=== PATIENT | female | born 1980 | race Caucasian/White ===

== ENCOUNTER 2016-05-30 08:00 | Outpatient (CLI) | payer OTHER | END 2016-05-30 08:01 | disposition home or self-care (01) | DX: N18.1 Chronic kidney disease, stage 1 (principal); E61.1 Iron deficiency ==

== ENCOUNTER 2016-06-20 19:36 | Outpatient (CLI) | payer OTHER | END 2016-06-20 19:37 | disposition home or self-care (01) | DX: Z11.3 Encounter for screening for infections with a predominantly sexual mode of transmission (principal) ==

== ENCOUNTER 2016-06-30 06:00 | Outpatient (CLI) | payer OTHER | END 2016-06-30 06:01 | disposition home or self-care (01) | DX: Z11.4 Encounter for screening for human immunodeficiency virus [HIV] (principal) ==

== ENCOUNTER 2016-08-03 08:50 | Emergency (ER) | payer OTHER | END 2016-08-03 10:49 | disposition home or self-care (01) | DX: S63.502A Unspecified sprain of left wrist, initial encounter (principal); W10.8XXA Fall (on) (from) other stairs and steps, initial encounter; Y93.89 Activity, other specified; Z95.2 Presence of prosthetic heart valve; Z79.82 Long term (current) use of aspirin ==

== ENCOUNTER 2017-04-13 11:20 | Outpatient (CLI) | payer OTHER ==
[2017-04-13 19:02] LABS: BASOPHILS # (AUTO) 0.1 10^3/uL (0.0-0.1); BASOPHILS % (AUTO) 0.7 %; EOSINOPHILS # (AUTO) 0.3 10^3/uL (0.0-0.7); EOSINOPHILS % (AUTO) 2.9 %; HCT - HEMATOCRIT 43.6 % (37.0-47.0); HGB - HEMOGLOBIN 14.4 g/dL (12.0-16.0); LYMPHOCYTES % (AUTO) 21.8 %; MEAN CORPUSCULAR HEMOGLOBIN 31.9 pg (27.0-31.0); MEAN CORPUSCULAR HGB CONC 33.1 g/dL (32.0-36.0); MEAN CORPUSCULAR VOLUME 96.4 fL (81.0-99.0); MEAN PLATELET VOLUME 9.1 fL (7.9-10.8); MONOCYTES # (AUTO) 0.7 10^3/uL (0.0-1.0); MONOCYTES % (AUTO) 7.3 %; NEUTROPHILS # (AUTO) 6.1 10^3/uL (1.5-6.6); NEUTROPHILS % (AUTO) 67.3 %; NUCLEATED RED BLOOD CELLS AUTO 0.1 /100WBC; RED BLOOD COUNT 4.52 10^6/uL (4.20-5.40); RED CELL DISTRIBUTION WIDTH 12.6 % (12.0-15.0); UNCORRECTED WHITE BLOOD COUNT 9.1 x10^3/uL; WHITE BLOOD COUNT 9.1 x10^3/uL (4.8-10.8)
[2017-04-13 19:18] LABS: ALBUMIN/GLOBULIN RATIO 1.1 (1.0-2.2); BILIRUBIN,TOTAL 0.5 mg/dL (0.2-1.0); BUN - BLOOD UREA NITROGEN 21 mg/dL (6-20); CALCIUM 9.1 mg/dL (8.5-10.3); CARBON DIOXIDE - CO2 21 mmol/L (21-32); CHLORIDE 105 mmol/L (101-111); CHOL/HDL RATIO 3.2 (<4.4); CHOLESTEROL 205 mg/dL; CREATININE 1.5 mg/dL (0.4-1.0); GFR - MDRD 39 (>89); GLUCOSE 88 mg/dL (70-100); HDL CHOLESTEROL 65 mg/dL; IRON 142 ug/dL (28-170); LDL/HDL RATIO 1.4 (<4.4); POTASSIUM 4.3 mmol/L (3.5-5.0); SODIUM 134 mmol/L (135-145); TOTAL IRON BINDING CAPACITY 300 ug/dL (250-450); TRANSFERRIN 214 mg/dL (192-382); TRIGLYCERIDES 260 mg/dL; VLDL CHOLESTEROL 52 mg/dL
== END 2017-04-13 11:21 | disposition home or self-care (01) ==
LOC: LAB.WCP 11:20
PROVIDERS: ATTEND Physician Assistant Medical
DX: Z51.81 Encounter for therapeutic drug level monitoring (principal); N18.1 Chronic kidney disease, stage 1; E78.5 Hyperlipidemia, unspecified; E61.1 Iron deficiency
CPT/HCPCS: 36415; 80053; 80061; 82728; 83540; 84466; 85025

== ENCOUNTER 2017-07-13 08:00 | Outpatient (CLI) | payer OTHER ==
[2017-07-13 14:10] LABS: ALBUMIN 3.6 g/dL (3.2-5.5); ALBUMIN/GLOBULIN RATIO 1.1 (1.0-2.2); ALKALINE PHOSPHATASE 58 IU/L (42-121); ALT ALANINE AMINOTRANSFERASE 25 IU/L (10-60); AST ASPARTATE AMINOTRANSFERASE 27 IU/L (10-42); BILIRUBIN,TOTAL 0.9 mg/dL (0.2-1.0); BUN - BLOOD UREA NITROGEN 17 mg/dL (6-20); CARBON DIOXIDE - CO2 26 mmol/L (21-32); CHLORIDE 106 mmol/L (101-111); CHOL/HDL RATIO 2.8 (<4.4); CHOLESTEROL 213 mg/dL; CREATININE 1.5 mg/dL (0.4-1.0); GFR - MDRD 39 (>89); GLUCOSE 85 mg/dL (70-100); HDL CHOLESTEROL 77 mg/dL; LDL CHOLESTEROL,CALCULATED 103 mg/dL; LDL/HDL RATIO 1.3 (<4.4); SODIUM 135 mmol/L (135-145); VLDL CHOLESTEROL 33 mg/dL
== END 2017-07-13 08:01 | disposition home or self-care (01) ==
LOC: LAB.WCP 08:00
PROVIDERS: ATTEND Physician Assistant Medical
DX: E78.5 Hyperlipidemia, unspecified (principal); Z51.81 Encounter for therapeutic drug level monitoring; Z79.899 Other long term (current) drug therapy
CPT/HCPCS: 36415; 80053; 80061; 83721

== ENCOUNTER 2017-10-01 14:43 | Outpatient (CLI) | payer OTHER ==
[2017-10-01 15:21] LABS: ALBUMIN 3.5 g/dL (3.2-5.5); ALBUMIN/GLOBULIN RATIO 0.9 (1.0-2.2); BILIRUBIN,TOTAL 0.5 mg/dL (0.2-1.0); CALCIUM 8.9 mg/dL (8.5-10.3); CREATININE 1.6 mg/dL (0.4-1.0); CRP HIGH SENSITIVITY 10.2 mg/L; TOTAL PROTEIN 7.2 g/dL (6.7-8.2)
== END 2017-10-01 14:44 | disposition home or self-care (01) ==
LOC: LAB 14:43
PROVIDERS: ATTEND Internal Medicine Adult Congenital Heart Disease
DX: I35.1 Nonrheumatic aortic (valve) insufficiency (principal)
CPT/HCPCS: 36415; 80053; 83880; 85651; 86141

== ENCOUNTER 2017-10-05 18:03 | Outpatient (CLI) | payer OTHER ==
[2017-10-05 18:27] LABS: ALBUMIN 3.7 g/dL (3.2-5.5); ALBUMIN/GLOBULIN RATIO 1.1 (1.0-2.2); BILIRUBIN,TOTAL 0.6 mg/dL (0.2-1.0); CREATININE 1.7 mg/dL (0.4-1.0); TOTAL PROTEIN 7.1 g/dL (6.7-8.2)
== END 2017-10-05 18:04 | disposition home or self-care (01) ==
LOC: LAB 18:03
PROVIDERS: ATTEND Internal Medicine Adult Congenital Heart Disease
DX: I35.1 Nonrheumatic aortic (valve) insufficiency (principal)
CPT/HCPCS: 80053

== ENCOUNTER 2017-10-19 17:15 | Outpatient (CLI) | payer OTHER ==
[2017-10-19 17:52] LABS: INR 1.4 (0.8-1.2); PT - PROTHROMBIN TIME 16.1 secs (9.9-12.6)
== END 2017-10-19 17:16 | disposition home or self-care (01) ==
LOC: LAB 17:15
PROVIDERS: ATTEND Family Medicine
DX: Z79.01 Long term (current) use of anticoagulants (principal)
CPT/HCPCS: 85610

== ENCOUNTER 2017-12-26 08:00 | Outpatient (CLI) | payer OTHER ==
[2017-12-26 13:13] LABS: CHOL/HDL RATIO 2.6 (<4.4); CHOLESTEROL 181 mg/dL; HDL CHOLESTEROL 70 mg/dL; LDL CHOLESTEROL,CALCULATED 85 mg/dL; LDL/HDL RATIO 1.2 (<4.4); VLDL CHOLESTEROL 26 mg/dL
== END 2017-12-26 08:01 ==
LOC: LAB.WCP 08:00
PROVIDERS: ATTEND Family Medicine
DX: E78.5 Hyperlipidemia, unspecified (principal)
CPT/HCPCS: 36415; 80061; 83721

== ENCOUNTER 2018-07-27 09:15 | Emergency (ER) | payer OTHER ==
[2018-07-27 09:26] VITALS: BP 132/90
--- NOTE | 2018-07-27 09:39 | ED Physician Documentation ---
PD HPI FEMALE - Stated complaint Stated Complaint: FEM - Chief complaint Chief Complaint: UTI - History obtained from History obtained from: Patient - History of Present Illness Timing - onset: How many weeks ago (1) Timing - duration: Weeks (1) Timing - details: Gradual onset, Still present (tried OTC Monistat without improvement.) Associated symptoms: Vaginal discharge (Itching and white discharge c/w yeast infection.) Contributing factors: Other (No recent illness no antibiotics. She is with single partner. She denies any new medications.) Similar symptoms before: Diagnosis (yeast infection years agao) Review of Systems Constitutional: denies: Fever Nose: denies: Rhinorrhea / runny nose, Congestion Throat: denies: Sore throat GI: denies: Vomiting, Diarrhea : reports: Discharge. 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 Psych: Depression - Past Surgical History Past Surgical History: Yes Cardiovascular: Valve replacement - Present Medications Home Medications: Ambulatory Orders Medication Instructions Recorded Confirmed Escitalopram Oxalate [Lexapro] 1 tab PO DAILY 10/13/15 08/03/16 Aspirin [Gurwinder Chewable] 81 mg PO DAILY 11/14/15 08/03/16 Albuterol Sulfate [Proair Hfa 1 puffs INH .FREQ 05/08/16 08/03/16 Inhaler] Bacillus Coagulans [Probiotic] 1 tab PO DAILY 05/08/16 08/03/16 Cetirizine HCl/Pseudoephedrine 1 each PO BID PRN #30 tab.er.12h 05/08/16 08/03/16 [Zyrtec-D Tablet] Ferrous Gluconate [Iron] 1 tab PO DAILY 05/08/16 08/03/16 Multivitamin [Multivitamins] 1 tab PO DAILY 05/08/16 08/03/16 Control 1 tab PO DAILY 08/03/16 Fluconazole [Diflucan] 150 mg PO ONCE #2 tablet 07/27/18 - Allergies Allergies/Adverse Reactions: Allergies Allergy/AdvReac Type Severity Reaction Status Date / Time Sulfa (Sulfonamide Allergy Hives Verified 07/27/18 09:26 Antibiotics) - Social History Does the pt smoke?: No Smoking Status: Never smoker Does the pt drink ETOH?: No Does the pt have substance abuse?: No - Immunizations Immunizations are current?: Yes - POLST Patient has POLST: No PD ED PE NORMAL - Vitals Vital signs reviewed: Yes - General General: Alert and oriented X 3, No acute distress, Well developed/nourished - HEENT HEENT: Moist mucous membranes - Back Back: No CVA TTP - Derm Derm: Normal color, Warm and dry - Neuro Neuro: Alert and oriented X 3, No motor deficit, Normal speech Results - Vitals Vitals: Vital Signs - 24 hr 07/27/18 09:23 Temperature 36.4 C L Heart Rate 85 Respiratory 14 Rate Blood Pressure 132/90 H O2 Saturation 95 Oxygen O2 Source Room air PD MEDICAL DECISION MAKING - ED course Complexity details: considered differential (Sounds like a yeast vaginitis and we will treated that way. We discussed potential bacterial vaginitis and shared decision to defer pelvic exam at this time.), d/w patient Departure - Departure Disposition: 01 Home, Self Care Clinical Impression: Vaginitis Qualifiers: Chronicity: acute Qualified Code(s): N76.0 - Acute vaginitis Condition: Stable Record reviewed to determine appropriate education?: Yes Instructions: ED Vaginal Infec Fungal Caty Follow-Up: Wilfredo Johnson DO [Primary Care Provider] - Prescriptions: Fluconazole [Diflucan] 150 mg PO ONCE #2 tablet Comments: Take the fluconazole today and repeat it in 3-4 days. This typically will be sufficient. Recheck if not improved over the next few days for consideration of bacterial cause instead.
== END 2018-07-27 09:51 | disposition home or self-care (01) ==
LOC: ED 09:15
DX: N76.0 Acute vaginitis (principal); I10 Essential (primary) hypertension; Z95.2 Presence of prosthetic heart valve; Z79.82 Long term (current) use of aspirin
CPT/HCPCS: 99283

== ENCOUNTER 2018-10-02 08:59 | Emergency (ER) | payer OTHER ==
[2018-10-02] MEDS ORDERED: DEXAMETHASONE 10 MG/ML VIAL PO STA (09:39)
[2018-10-02] MEDS ORDERED: CHERRY SYRUP 10 ML UDC PO ONE (09:39)
--- NOTE | 2018-10-02 09:42 | ED Physician Documentation ---
PD HPI URI - Stated complaint Stated Complaint: COUGH/SORE THROAT/CONGESTION - Chief complaint Chief Complaint: Resp - History obtained from History obtained from: Patient - History of Present Illness Timing - onset: How many weeks ago (1) Timing duration: Weeks (1) Timing details: Gradual onset, Still present Associated symptoms: Nasal congestion, Rhinorrhea, Sinus pain, Productive cough, Dyspnea Improves by: Rest, Medication Worsened by: Activity Similar symptoms before: Diagnosis (bronchitis and sinusitis) Recently seen: Not recently seen - Additional information Additional information: 38-year-old female who is status post aortic arch and valve replacement has developed a cough and congestion productive of yellow and green phlegm and some shortness of breath. She does have an inhaler and she has been reluctant to use it as previously when she was using her inhaler over over again last year it eventually became clear that it was not reactive airway disease and at that point the patient had to have her aortic valve replaced. She is on her second porcine valve. 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 Psych: Depression - Past Surgical History Past Surgical History: Yes Cardiovascular: Valve replacement - Present Medications Home Medications: Ambulatory Orders Medication Instructions Recorded Confirmed Escitalopram Oxalate [Lexapro] 1 tab PO DAILY 10/13/15 10/02/18 Aspirin [Gurwinder Chewable] 81 mg PO DAILY 11/14/15 10/02/18 Albuterol Sulfate [Proair Hfa 1 puffs INH .FREQ 05/08/16 10/02/18 Inhaler] Ferrous Gluconate [Iron] 1 tab PO DAILY 05/08/16 10/02/18 Multivitamin [Multivitamins] 1 tab PO DAILY 05/08/16 10/02/18 Control 1 tab PO DAILY 08/03/16 10/02/18 Amox/Clav 875/125 [Augmentin] 1 each PO Q12H #20 tablet 10/02/18 Loratadine/Pseudoephedrine 1 each PO DAILY 10/02/18 10/02/18 [Claritin-D 24 Hour Tablet] Losartan Potassium 50 mg PO DAILY 10/02/18 10/02/18 - Allergies Allergies/Adverse Reactions: Allergies Allergy/AdvReac Type Severity Reaction Status Date / Time Sulfa (Sulfonamide Allergy Hives Verified 10/02/18 09:12 Antibiotics) - Social History Does the pt smoke?: No Smoking Status: Never smoker Does the pt drink ETOH?: No Does the pt have substance abuse?: No - Immunizations Immunizations are current?: Yes - POLST Patient has POLST: No PD ED PE NORMAL - Vitals Vital signs reviewed: Yes (hypertensive ) - General General: Alert and oriented X 3, No acute distress, Well developed/nourished - HEENT HEENT: Atraumatic, PERRL, EOMI, Ears normal, Moist mucous membranes, Pharynx benign, Other (There is left maxillary sinus point tendeness ) - Neck Neck: Supple, no meningeal sign, No bony TTP - Cardiac Cardiac: RRR, Other (2/6 holosystolic murmer at LSB) - Respiratory Respiratory: No respiratory distress, Other (diminshed breath sounds with scattered wheezes and rhonchi ) - Abdomen Abdomen: Soft, Non tender - Back Back: No CVA TTP, No spinal TTP - Derm Derm: Normal color, Warm and dry, No rash - Extremities Extremities: No deformity, No edema - Neuro Neuro: Alert and oriented X 3, band shover 2-12 intact, No motor deficit, No sensory deficit, Normal speech Eye Opening: Spontaneous Motor: Obeys Commands Verbal: Oriented GCS Score: 15 - Psych Psych: Normal mood, Normal affect Results - Vitals Vitals: Vital Signs - 24 hr 10/02/18 09:09 Temperature 36.1 C L Heart Rate 81 Respiratory 16 Rate Blood Pressure 138/90 H O2 Saturation 98 Oxygen O2 Source Room air - Rads (name of study) chest 2 view Radiology: Prelim report reviewed (Impression: 1. No acute disease evident. 2 new aortic valve prosthesis and cardiac pacer in position.), EMP read indepedently, See rad report PD MEDICAL DECISION MAKING - ED course Complexity details: reviewed results, re-evaluated patient, considered differential, d/w patient ED course: 38-year-old female with cough and congestion with sinus tenderness Is administered Rocephin 1 g IM as well as dexamethasone and will place her on a course of Augmentin. Departure - Departure Disposition: 01 Home, Self Care Clinical Impression: Sinusitis Qualifiers: Sinusitis location: maxillary Chronicity: acute Recurrence: not specified as recurrent Qualified Code(s): J01.00 - Acute maxillary sinusitis, unspecified Condition: Stable Instructions: ED Sinusitis Abx Tx Follow-Up: Wilfredo Johnson DO [Primary Care Provider] - Prescriptions: Amox/Clav 875/125 [Augmentin] 1 each PO Q12H #20 tablet Forms: Activity restrictions
--- NOTE | 2018-10-02 10:47 | XRAY Report ---
Reason: cough rhonchi and decreased breath sounds. Procedure Date: 10/02/2018 Accession Number: [id number] / [id number] Procedure: XR - Chest 2 View X-Ray CPT Code: 49778 FULL RESULT: EXAM: CHEST RADIOGRAPHY EXAM DATE: 10/02/2018 10:35 AM. CLINICAL HISTORY: Cough, rhonchi, decreased breath sounds. COMPARISON: XR CHEST PA AND LAT 05/12/2008 4:50 AM. TECHNIQUE: 2 views. FINDINGS: Lungs/Pleura: No focal opacities evident. No pleural effusion. No pneumothorax. Normal volumes. Mediastinum: Heart and mediastinal contours are unremarkable. Other: A new pacer overlies the left chest with leads overlying the right atrium and ventricle. Sternotomy wires are intact. A new valvular prosthesis overlies the expected location of the aortic valve. IMPRESSION: 1. No acute disease evident. 2. New aortic valve prosthesis and cardiac pacer in position. RADIA
[2018-10-02] MEDS ORDERED: IPRATROPIUM/ALBUTEROL 3 ML NEB INH STA (11:05)
[2018-10-02 11:55] VITALS: BP 137/89
== END 2018-10-02 11:35 | disposition home or self-care (01) ==
LOC: ED 08:59
DX: J01.00 Acute maxillary sinusitis, unspecified (principal); J45.909 Unspecified asthma, uncomplicated; I10 Essential (primary) hypertension; Z95.4 Presence of other heart-valve replacement; Z95.0 Presence of cardiac pacemaker; Z79.82 Long term (current) use of aspirin
CPT/HCPCS: 71046; 94640; 94664; 99283; A9270

== ENCOUNTER 2018-10-15 08:30 | Outpatient (CLI) | payer OTHER ==
[2018-10-15 09:49] LABS: BASOPHILS % (AUTO) 0.4 %; EOSINOPHILS # (AUTO) 0.1 10^3/uL (0.0-0.7); EOSINOPHILS % (AUTO) 0.9 %; HGB - HEMOGLOBIN 13.2 g/dL (12.0-16.0); LYMPHOCYTES # (AUTO) 2.2 10^3/uL (1.5-3.5); LYMPHOCYTES % (AUTO) 31.2 %; MEAN CORPUSCULAR HEMOGLOBIN 32.4 pg (27.0-31.0); MEAN CORPUSCULAR HGB CONC 33.8 g/dL (32.0-36.0); MEAN CORPUSCULAR VOLUME 95.9 fL (81.0-99.0); MEAN PLATELET VOLUME 6.9 fL (7.9-10.8); MONOCYTES # (AUTO) 0.5 10^3/uL (0.0-1.0); MONOCYTES % (AUTO) 7.5 %; NEUTROPHILS # (AUTO) 4.3 10^3/uL (1.5-6.6); PLT - PLATELET COUNT 264 10^3/uL (130-450); RED BLOOD COUNT 4.06 10^6/uL (4.20-5.40); RED CELL DISTRIBUTION WIDTH 12.6 % (12.0-15.0); WHITE BLOOD COUNT 7.2 x10^3/uL (4.8-10.8)
[2018-10-15 10:01] LABS: ALBUMIN 3.5 g/dL (3.2-5.5); CALCIUM 9.6 mg/dL (8.5-10.3); CREATININE 1.8 mg/dL (0.4-1.0)
[2018-10-15 10:22] LABS: CREATININE,URINE 119.8 mg/dL; PROTEIN/CREATININE RATIO,URINE 1.2 (<=0.2)
== END 2018-10-15 08:31 | disposition home or self-care (01) ==
LOC: LAB 08:30
PROVIDERS: ATTEND Internal Medicine Nephrology
DX: N18.3 Chronic kidney disease, stage 3 (moderate) (principal); I15.9 Secondary hypertension, unspecified
CPT/HCPCS: 36415; 80069; 82570; 84156; 85025

== ENCOUNTER 2019-01-22 09:16 | Emergency (ER) | payer OTHER ==
[2019-01-22 09:23] VITALS: BP 134/86
--- NOTE | 2019-01-22 09:31 | ED Physician Documentation ---
PD HPI LOWER EXT INJURY - Stated complaint Stated Complaint: ANKLE PX - Chief complaint Chief Complaint: Ext Problem - History obtained from History obtained from: Patient - History of Present Illness PD HPI LOW EXT INJURY LOCATION: Right Type of injury: Twist (last night while walking in heeled shoes.) Timing - onset: Yesterday Timing - details: Abrupt onset, Still present Worsened by: Moving Associated symptoms: Swelling. 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 Psych: Depression - Past Surgical History Past Surgical History: Yes Cardiovascular: Valve replacement - Present Medications Home Medications: Ambulatory Orders Medication Instructions Recorded Confirmed Escitalopram Oxalate [Lexapro] 1 tab PO DAILY 10/13/15 10/02/18 Aspirin [Gurwinder Chewable] 81 mg PO DAILY 11/14/15 10/02/18 Albuterol Sulfate [Proair Hfa 1 puffs INH .FREQ 05/08/16 10/02/18 Inhaler] Ferrous Gluconate [Iron] 1 tab PO DAILY 05/08/16 10/02/18 Multivitamin [Multivitamins] 1 tab PO DAILY 05/08/16 10/02/18 Control 1 tab PO DAILY 08/03/16 10/02/18 Amox/Clav 875/125 [Augmentin] 1 each PO Q12H #20 tablet 10/02/18 Loratadine/Pseudoephedrine 1 each PO DAILY 10/02/18 10/02/18 [Claritin-D 24 Hour Tablet] Losartan Potassium 50 mg PO DAILY 10/02/18 10/02/18 - Allergies Allergies/Adverse Reactions: Allergies Allergy/AdvReac Type Severity Reaction Status Date / Time Sulfa (Sulfonamide Allergy Hives Verified 01/22/19 09:23 Antibiotics) - Social History Does the pt smoke?: No Smoking Status: Never smoker Does the pt drink ETOH?: No Does the pt have substance abuse?: No - Immunizations Immunizations are current?: Yes - POLST Patient has POLST: No PD ED PE NORMAL - Vitals Vital signs reviewed: Yes - General General: Alert and oriented X 3, No acute distress, Well developed/nourished - Derm Derm: Normal color, Warm and dry - Extremities Extremities: Other (right ankle with tenderness anterolaterally and anterior to malleolus. Moderate ankle effusion generally. ) - Neuro Neuro: Alert and oriented X 3, No motor deficit, No sensory deficit, Normal speech Results - Vitals Vitals: Vital Signs - 24 hr 01/22/19 09:19 Temperature 36.6 C Heart Rate 74 Respiratory 16 Rate Blood Pressure 134/86 H O2 Saturation 97 Oxygen O2 Source Room air - Rads (name of study) right ankle Radiology: Prelim report reviewed (no fractures), See rad report PD MEDICAL DECISION MAKING - ED course Complexity details: reviewed results (no fractures; treat as sprain), considered differential, d/w patient Departure - Departure Disposition: 01 Home, Self Care Clinical Impression: Ankle sprain Qualifiers: Encounter type: initial encounter Involved ligament of ankle: unspecified ligament Laterality: right Qualified Code(s): S93.401A - Sprain of unspecified ligament of right ankle, initial encounter Condition: Stable Record reviewed to determine appropriate education?: Yes Instructions: ED Sprain Ankle Follow-Up: Wilfredo Johnson DO [Primary Care Provider] - Comments: Walking boot or Aircast as needed for stability of the ankle for 2 to 3 weeks until really well-healed. Crutches initially for comfort and progress weightbearing as able. Elevate ice and rest your ankle often today. Consider anti-inflammatory such as naproxen or ibuprofen 2-3 times a day for the next few days and add Tylenol if needed for pains. Recheck if not improved well over the next several days and fully over the next week or 2. Discharge Date/Time: 01/22/19 10:24
--- NOTE | 2019-01-22 09:58 | XRAY Report ---
Reason: injury Procedure Date: 01/22/2019 Accession Number: [id number] / [id number] Procedure: XR - Ankle 3 View RT CPT Code: FULL RESULT: EXAM: RIGHT ANKLE RADIOGRAPHY EXAM DATE: 01/22/2019 09:43 AM. CLINICAL HISTORY: Ankle injury from twisting motion. COMPARISON: ANKLE 3 VIEW RT 11/14/2015 2:34 PM. TECHNIQUE: 3 views. FINDINGS: Bones: Normal. No fractures or bone lesions. Joints: Normal. No effusion. No subluxations. The ankle mortise is normally aligned. Soft Tissues: Normal. No soft tissue swelling. IMPRESSION: Normal ankle radiography. No fracture or other acute osseous abnormality. RADIA
== END 2019-01-22 10:24 | disposition home or self-care (01) ==
LOC: ED 09:16
DX: S93.401A Sprain of unspecified ligament of right ankle, initial encounter (principal); X50.1XXA Overexertion from prolonged static or awkward postures, initial encounter; Y93.01 Activity, walking, marching and hiking; I10 Essential (primary) hypertension; Z79.82 Long term (current) use of aspirin
CPT/HCPCS: 99282; 99283

== ENCOUNTER 2020-06-15 12:42 | Outpatient (CLI) | payer OTHER ==
--- NOTE | 2020-06-16 10:11 | Mammography Report ---
BILATERAL DIGITAL SCREENING MAMMOGRAM 3D/2D: 06/15/2020 CLINICAL: Routine screening. Baseline exam. No prior exams were available for comparison. The tissue of both breasts is heterogeneously dense. T his may lower the sensitivity of mammography. No significant masses, calcifications, or other findings are seen in either breast. IMPRESSION: NEGATIVE There is no mammographic evidence of malignancy. A 1 year screening mammogram is recommended. This exam was interpreted at Station ID: [id number]. NOTE: For mammograms, a report in lay terms will be sent to the patient. Approximately 15% of breast malignancies will not be visualized mammographically. In the management of a palpable breast mass, a negative mammogram must not discourage biopsy of a clinically suspicious lesion. Electronically Signed By: Davis [email or web address]/[email or web address]:06/15/2020 14:56:49 ACR BI-RADS Category 1: Negative 3341F PARENCHYMAL PATTERN: (D) - The breast(s) demonstrate(s) heterogeneously dense fibroglandular lynette whittaker. BI-RADS CATEGORY: (1) - 1 RECOMMENDATION: (ANNUAL) - Recommend routine annual screening mammography. [id number] 1 year screening LATERALITY: (B)
== END 2020-06-15 12:43 | disposition home or self-care (01) ==
LOC: DI 12:42
DX: Z12.31 Encounter for screening mammogram for malignant neoplasm of breast (principal)

== ENCOUNTER 2022-03-23 12:25 | Emergency (ER) | payer OTHER ==
[2022-03-23 12:49] VITALS: BP 119/73
--- NOTE | 2022-03-23 13:59 | CT Report ---
PROCEDURE: HEAD WO INDICATIONS: head injury 2 days ago, cont pain TECHNIQUE: Noncontrast 4.5 mm thick angled axial sections acquired from the foramen magnum to the vertex. For r adiation dose reduction, the following was used: automated exposure control, adjustment of mA and/or kV according to patient size. COMPARISON: None. FINDINGS: Image quality: Excellent. CSF spaces: Basal cisterns are patent. No extra-axial fluid collections. Ventricles are normal in size and shape. Brain: No midline shift. No intracranial masses or hemorrhage. Kinney-white matter interface is norm al. Skull and face: Calvarium and visualized facial bones are intact, without suspicious lesions. Sinuses: Record in the left frontal sinus, anterior ethmoid air cell, and maxillary sinus disease par tially visualized with post surgical changes of right medial maxillary sinus antrostomy partially vis ualized also. No mastoid air cell effusion. IMPRESSION: No acute intracranial finding. Reviewed by: Gonzalo Cuellar MD on 03/23/2022 1:58 PM PDT Approved by: Gonzalo Cuellar MD on 03/23/2022 1:58 PM PDT Station ID: [id number]
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
== END 2022-03-23 14:29 | disposition home or self-care (01) ==
LOC: ED 12:25
DX: S09.90XA Unspecified injury of head, initial encounter (principal); S00.33XA Contusion of nose, initial encounter; W22.8XXA Striking against or struck by other objects, initial encounter; Z95.0 Presence of cardiac pacemaker; F17.200 Nicotine dependence, unspecified, uncomplicated
CPT/HCPCS: 99282; 99284

== ENCOUNTER 2022-03-23 14:33 | Outpatient (CLI) | payer OTHER ==
[2022-03-23 14:47] LABS: BASOPHILS # (AUTO) 0.1 10^3/uL (0.0-0.1); BASOPHILS % (AUTO) 0.6 %; EOSINOPHILS # (AUTO) 0.2 10^3/uL (0.0-0.7); HCT - HEMATOCRIT 39.9 % (37.0-47.0); HGB - HEMOGLOBIN 12.9 g/dL (12.0-16.0); LYMPHOCYTES # (AUTO) 1.7 10^3/uL (1.5-3.5); LYMPHOCYTES % (AUTO) 16.7 %; MEAN CORPUSCULAR HEMOGLOBIN 31.9 pg (27.0-31.0); MEAN CORPUSCULAR HGB CONC 32.3 g/dL (32.0-36.0); MEAN CORPUSCULAR VOLUME 98.8 fL (81.0-99.0); MEAN PLATELET VOLUME 9.6 fL (7.9-10.8); MONOCYTES # (AUTO) 0.5 10^3/uL (0.0-1.0); MONOCYTES % (AUTO) 5.4 %; NEUTROPHILS # (AUTO) 7.4 10^3/uL (1.5-6.6); NEUTROPHILS % (AUTO) 75.1 %; PLT - PLATELET COUNT 220 10^3/uL (130-450); RED BLOOD COUNT 4.04 10^6/uL (4.20-5.40); RED CELL DISTRIBUTION WIDTH 11.9 % (12.0-15.0); WHITE BLOOD COUNT 9.9 x10^3/uL (4.8-10.8)
[2022-03-23 15:07] LABS: ALBUMIN 4.2 g/dL (3.2-5.5); ALBUMIN/GLOBULIN RATIO 1.3 (1.0-2.2); ALKALINE PHOSPHATASE 46 IU/L (42-121); ALT ALANINE AMINOTRANSFERASE 18 IU/L (10-60); AST ASPARTATE AMINOTRANSFERASE 20 IU/L (10-42); BILIRUBIN,TOTAL 0.6 mg/dL (0.2-1.0); BUN - BLOOD UREA NITROGEN 27 mg/dL (6-20); CHOL/HDL RATIO 2.5 (<4.4); CHOLESTEROL 186 mg/dL; CREATININE 1.9 mg/dL (0.4-1.0); GFR - MDRD 29 (>89); HDL CHOLESTEROL 74 mg/dL; LDL CHOLESTEROL,CALCULATED 92 mg/dL; LDL/HDL RATIO 1.2 (<4.4); PHOSPHORUS 2.8 mg/dL (2.5-4.6); TOTAL PROTEIN 7.4 g/dL (6.7-8.2); TRIGLYCERIDES 102 mg/dL; VLDL CHOLESTEROL 20 mg/dL
[2022-03-23 15:14] LABS: CALCIUM 9.8 mg/dL (8.5-10.3); CARBON DIOXIDE - CO2 26 mmol/L (21-32); CHLORIDE 102 mmol/L (101-111); GLUCOSE 89 mg/dL (70-100); POTASSIUM 4.5 mmol/L (3.5-5.0); SODIUM 135 mmol/L (135-145)
[2022-03-23 15:16] LABS: THYROID STIMULATING HORMONE 3.35 uIU/mL (0.34-5.60)
== END 2022-03-23 14:34 | disposition home or self-care (01) ==
LOC: LAB 14:33
PROVIDERS: ATTEND Physician Assistant
DX: N18.30 Chronic kidney disease, stage 3 unspecified (principal); E78.5 Hyperlipidemia, unspecified; E55.9 Vitamin D deficiency, unspecified; R79.89 Other specified abnormal findings of blood chemistry
CPT/HCPCS: 36415; 80053; 80061; 82306; 83721; 83970; 84100; 84443; 85025

== ENCOUNTER 2022-05-30 13:47 | Outpatient (CLI) | payer OTHER ==
--- NOTE | 2022-05-31 10:06 | Mammography Report ---
BILATERAL DIGITAL SCREENING MAMMOGRAM 3D/2D WITH EXAGGERATED CC: 05/30/2022 CLINICAL: Routine screening. Comparison is made to exam dated: 06/15/2020 mammogram - [facility]. Both breasts are heterogeneously dense, which may obscure small masses (category c / 51-75% glandular tissue). No significant masses, calcifications, or other findings are seen in either breast. There has been no significant interval change. IMPRESSION: NEGATIVE There is no mammographic evidence of malignancy. A 1 year screening mammogram is recommended. Based on the Tyrer Cuzick model (a risk assessment model) the patients lifetime risk is 14.3% and he r 10 year risk is 2.1%. According to the ACR, ACS, and NCCN guidelines, an annual breast MRI exam woodrow ng with mammogram is recommended if the patients lifetime risk is 20% or greater. This exam was interpreted at Station ID: [id number]. NOTE: For mammograms, a report in lay terms will be sent to the patient. Approximately 15% of breast malignancies will not be visualized mammographically. In the management of a palpable breast mass, a negative mammogram must not discourage biopsy of a clinically suspicious lesion. Electronically Signed By: Laura [email or web address]/[email or web address]:05/30/2022 16:13:45 ACR BI-RADS Category 1: Negative 3341F PARENCHYMAL PATTERN: (D) - The breast(s) demonstrate(s) heterogeneously dense fibroglandular lynette whittaker. BI-RADS CATEGORY: (1) - 1 RECOMMENDATION: (ANNUAL) - Recommend routine annual screening mammography. [id number] 1 year screening LATERALITY: (B)
== END 2022-05-30 13:48 | disposition home or self-care (01) ==
LOC: DI 13:47
PROVIDERS: ATTEND Physician Assistant
DX: Z12.31 Encounter for screening mammogram for malignant neoplasm of breast (principal)

== ENCOUNTER 2022-07-11 11:55 | Emergency (ER) | payer OTHER ==
[2022-07-11 12:16] VITALS: BP 144/88
[2022-07-11 12:36] LABS: RAPID STREP SCREEN Negative (Negative)
[2022-07-11 13:23] LABS: B. PARAPERTUSSIS- RESP PCR PAN NOT DETECTED; B. PERTUSSIS- RESP PCR PANEL NOT DETECTED; C. PNEUMONIAE- RESP PCR PANEL NOT DETECTED; CORONAVIRUS 229E-RESP PCR NOT DETECTED; CORONAVIRUS HKU1-RESP PCR NOT DETECTED; CORONAVIRUS NL63-RESP PCR NOT DETECTED; CORONAVIRUS OC43-RESP PCR NOT DETECTED; HUMAN METAPNEUMOVIRUS NOT DETECTED; INFLUENZA A- RESP PCR PANEL NOT DETECTED; INFLUENZA B - RESP PCR PANEL NOT DETECTED; M. PNEUMONIAE- RESP PCR PANEL NOT DETECTED; PARAINFLUENZA VIRUS 1 NOT DETECTED; PARAINFLUENZA VIRUS 2 NOT DETECTED; PARAINFLUENZA VIRUS 3 NOT DETECTED; PARAINFLUENZA VIRUS 4 NOT DETECTED; RHINOVIRUS/ENTEROVIRUS NOT DETECTED; RSV- RESP PCR PANEL NOT DETECTED; SARS-CoV-2 -RESP PCR PANEL NOT DETECTED
--- NOTE | 2022-07-11 13:28 | XRAY Report ---
PROCEDURE: Chest 2 View X-Ray INDICATIONS: productive cough TECHNIQUE: 2 views of the chest were acquired. COMPARISON: Chest x-ray 10/12/2018 FINDINGS: Surgical changes and devices: Pacemaker and sternal wires are noted. Lungs and pleura: No pleural effusions or pneumothorax. Lungs are clear. Mediastinum: Mediastinal contours are normal. Heart size is normal. Bones and chest wall: No suspicious bony abnormalities. Soft tissues appear unremarkable. IMPRESSION: No acute pulmonary process. Reviewed by: Claribel Batista MD on 07/11/2022 1:26 PM PST Approved by: Claribel Batista MD on 07/11/2022 1:26 PM PST Station ID: [id number]
== END 2022-07-11 15:22 | disposition left against medical advice (07) ==
LOC: ED 11:55
DX: Z53.21 Procedure and treatment not carried out due to patient leaving prior to being seen by health care provider (principal)
CPT/HCPCS: 87070; 87077; 87430; 87633

== ENCOUNTER 2022-07-14 09:06 | Emergency (ER) | payer OTHER ==
[2022-07-14] MEDS ORDERED: CHERRY SYRUP 10 ML UDC PO ONE (09:34)
[2022-07-14] MEDS ORDERED: DEXAMETHASONE 10 MG/ML VIAL PO STA (09:34)
--- NOTE | 2022-07-14 09:36 | ED Physician Documentation ---
History of Present Illness - Stated complaint Stated Complaint: SOA/COUGH/THROAT PX - Chief complaint Chief Complaint: Heent - History obtained from History obtained from: Patient - History of Present Illness Timing: How many weeks ago (2) Pain level max: 5 Pain level now: 5 - Additonal information Additional information: 41-year-old female presents to the emergency department stating she has been sick for the past 2 weeks. She initially checked in 2 days ago, has had fever, cough, congestion, sore throat. Worse with eating and drinking. Nothing makes it better. Denies any possibility of . Her throat culture came back positive for strep pharyngitis. She is here for antibiotics. 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 Psych: Depression - Past Surgical History Past Surgical History: Yes Cardiovascular: Valve replacement - Present Medications Home Medications: Ambulatory Orders Medication Instructions Recorded Confirmed Escitalopram Oxalate [Lexapro] 1 tab PO DAILY 10/13/15 10/02/18 Aspirin [Gurwinder Chewable] 81 mg PO DAILY 11/14/15 10/02/18 Albuterol Sulfate [Proair Hfa 1 puffs INH .FREQ 05/08/16 10/02/18 Inhaler] Ferrous Gluconate [Iron] 1 tab PO DAILY 05/08/16 10/02/18 Multivitamin [Multivitamins] 1 tab PO DAILY 05/08/16 10/02/18 Control 1 tab PO DAILY 08/03/16 10/02/18 Amox/Clav 875/125 [Augmentin] 1 each PO Q12H #20 tablet 10/02/18 Loratadine/Pseudoephedrine 1 each PO DAILY 10/02/18 10/02/18 [Claritin-D 24 Hour Tablet] Losartan Potassium 50 mg PO DAILY 10/02/18 10/02/18 Penicillin V Potassium 500 mg PO Q6HR #40 tablet 07/14/22 - Allergies Allergies/Adverse Reactions: Allergies Allergy/AdvReac Type Severity Reaction Status Date / Time Sulfa (Sulfonamide Allergy Hives Verified 07/14/22 09:22 Antibiotics) - Social History Does the pt smoke?: Yes Smoking Status: Current every day smoker Does the pt drink ETOH?: Yes Does the pt have substance abuse?: No - Immunizations Immunizations are current?: Yes - POLST Patient has POLST: No PD ED PE NORMAL - Vitals Vital signs reviewed: Yes - General General: Alert and oriented X 3, No acute distress - HEENT HEENT: PERRL, Moist mucous membranes, Other (Posterior oropharynx is erythematous with tonsillar exudates. Normal phonation. No trismus. Uvula midline.) - Neck Neck: Supple, no meningeal sign, Other (Shotty anterior lymphadenopathy) - Cardiac Cardiac: RRR, Strong equal pulses - Respiratory Respiratory: No respiratory distress, Clear bilaterally - Abdomen Abdomen: Soft, Non tender, Non distended - Derm Derm: Warm and dry, No rash - Extremities Extremities: No edema - Neuro Neuro: Alert and oriented X 3 - Psych Psych: Normal mood, Normal affect Results - Vitals Vitals: Vital Signs - 24 hr 07/14/22 09:18 Temperature 37.0 C Heart Rate 92 Respiratory 16 Rate Blood Pressure 142/107 H O2 Saturation 100 Oxygen O2 Source Room air PD Medical Decision Making - ED course Complexity details: reviewed old records, considered differential, d/w patient ED course: 41-year-old female with strep pharyngitis. We will place on penicillin. Given a dose of dexamethasone here. Patient is well-appearing, nontoxic. Afebrile. Her throat culture from 2 days ago was reviewed. No evidence of peritonsillar or retropharyngeal abscess. Patient counseled regarding signs and symptoms for which I believe and urgent re-evaluation would be necessary. Patient with good understanding of and agreement to plan and is comfortable going home at this time This document was made in part using voice recognition software. While efforts are made to proofread this document, sound alike and grammatical errors may occur. Departure - Departure Disposition: 01 Home, Self Care Clinical Impression: Strep pharyngitis Condition: Good Instructions: ED Strep Pharyngitis Conf Follow-Up: Jenn Mathis PA [Primary Care Provider] - As Needed Prescriptions: Penicillin V Potassium 500 mg PO Q6HR #40 tablet Comments: Your prescription was sent to [facility] in [place]. Please follow-up with your doctor for further care. Please return if you worsen. You have tested positive for strep throat today. Drink plenty of fluids. Take all antibiotics until gone.
[2022-07-14 09:42] VITALS: BP 131/85
== END 2022-07-14 09:42 | disposition home or self-care (01) ==
LOC: ED 09:06
DX: J02.0 Streptococcal pharyngitis (principal); F17.200 Nicotine dependence, unspecified, uncomplicated
CPT/HCPCS: 99282; 99283; A9270

== ENCOUNTER 2023-10-16 07:00 | Outpatient (CLI) | payer OTHER ==
[2023-10-16 14:46] LABS: BILIRUBIN,URINE NEGATIVE (NEGATIVE); GLUCOSE, URINE (UA) NEGATIVE (NEGATIVE); KETONES,URINE (UA) NEGATIVE (NEGATIVE); LEUKOCYTE ESTERASE, URINE LARGE (NEGATIVE); NITRITE,URINE POSITIVE (NEGATIVE); OCCULT BLOOD,URINE MODERATE (NEGATIVE); PROTEIN,URINE 30 mg/dL (NEGATIVE); UROBILINOGEN,URINE 0.2 (NORMAL) E.U./dL (NORMAL)
[2023-10-16 15:26] LABS: CLARITY,URINE CLOUDY (CLEAR)
[2023-10-16 16:02] LABS: BACTERIA,URINE Moderate /HPF (None Seen); RBC,URINE TNTC /HPF (0-5); SQUAMOUS EPITHELIAL CELL,UR FEW Squamous (<= Few); WBC,URINE >25 /HPF (0-5)
== END 2023-10-16 23:59 | disposition home or self-care (01) ==
LOC: LAB.S 07:00
PROVIDERS: ATTEND Emergency Medicine
DX: R30.0 Dysuria (principal)
CPT/HCPCS: 81001; 87086; 87181

== ENCOUNTER 2023-10-22 12:50 | Emergency (ER) | payer OTHER ==
[2023-10-22 13:42] LABS: BASOPHILS # (AUTO) 0.1 10^3/uL (0.0-0.1); BASOPHILS % (AUTO) 0.7 %; EOSINOPHILS # (AUTO) 0.2 10^3/uL (0.0-0.7); EOSINOPHILS % (AUTO) 2.2 %; HCT - HEMATOCRIT 37.1 % (37.0-47.0); LYMPHOCYTES # (AUTO) 1.5 10^3/uL (1.5-3.5); LYMPHOCYTES % (AUTO) 20.1 %; MEAN CORPUSCULAR HEMOGLOBIN 31.3 pg (27.0-31.0); MEAN CORPUSCULAR HGB CONC 32.3 g/dL (32.0-36.0); MEAN CORPUSCULAR VOLUME 96.6 fL (81.0-99.0); MEAN PLATELET VOLUME 9.7 fL (7.9-10.8); MONOCYTES # (AUTO) 0.5 10^3/uL (0.0-1.0); NEUTROPHILS # (AUTO) 5.4 10^3/uL (1.5-6.6); NEUTROPHILS % (AUTO) 70.7 %; PLT - PLATELET COUNT 166 10^3/uL (130-450); RED BLOOD COUNT 3.84 10^6/uL (4.20-5.40); RED CELL DISTRIBUTION WIDTH 12.4 % (12.0-15.0); WHITE BLOOD COUNT 7.7 x10^3/uL (4.8-10.8)
[2023-10-22 13:55] LABS: ALBUMIN 3.8 g/dL (3.2-5.5); ALBUMIN/GLOBULIN RATIO 1.7 (1.0-2.2); BILIRUBIN,TOTAL 0.2 mg/dL (0.2-1.0); CALCIUM 9.5 mg/dL (8.5-10.3); POTASSIUM 4.2 mmol/L (3.5-4.5); TOTAL PROTEIN 6.1 g/dL (6.4-8.9)
[2023-10-22 14:36] LABS: BILIRUBIN,URINE NEGATIVE (NEGATIVE); GLUCOSE, URINE (UA) NEGATIVE (NEGATIVE); KETONES,URINE (UA) NEGATIVE (NEGATIVE); LEUKOCYTE ESTERASE, URINE NEGATIVE (NEGATIVE); NITRITE,URINE NEGATIVE (NEGATIVE); OCCULT BLOOD,URINE NEGATIVE (NEGATIVE); PROTEIN,URINE 100 mg/dL (NEGATIVE); UROBILINOGEN,URINE 0.2 (NORMAL) E.U./dL (NORMAL)
[2023-10-22 14:39] LABS: CLARITY,URINE CLEAR (CLEAR); HCG UR QUAL NEGATIVE
[2023-10-22 14:53] LABS: BACTERIA,URINE Few /HPF (None Seen); RBC,URINE None Seen /HPF (0-5); SQUAMOUS EPITHELIAL CELL,UR RARE Squamous (<= Few); WBC,URINE 0-3 /HPF (0-5)
[2023-10-22 15:42] VITALS: BP 125/67; O2SAT 98
--- NOTE | 2023-10-22 15:46 | ED Physician Documentation ---
History of Present Illness - Stated complaint Stated Complaint: - Chief complaint Chief Complaint: UTI - Additonal information Additional information: 43-year-old female with history of hypertension, asthma, colon polyps and recent urinary tract infection presents emergency department for concerns of possible ongoing dysuria. Patient says that she completed 5-day course of antibiotics does not member what kind she has no flank pain or tenderness no fevers or chills but yesterday was worried that maybe she was experiencing dysuria again. Today she denies any dysuria but wanted to just have her urine checked again for further evaluation. No vaginal pain, no abdominal pain no new sexual partners. PD PAST MEDICAL HISTORY - Past Medical History Past Medical History: Yes Cardiovascular: Hypertension, Valve disorder, Other Respiratory: Asthma Neuro: None Endocrine/Autoimmune: None GI: Colon polyps RESOLUTION REP: Other : Other HEENT: None Psych: Anxiety Musculoskeletal: None Derm: None - Past Surgical History Past Surgical History: Yes General: Colonoscopy /RESOLUTION REP: LEEP (Cervical surgery) Cardiovascular: Valve replacement, Pacemaker - Present Medications Home Medications: Ambulatory Orders Medication Instructions Recorded Confirmed Escitalopram Oxalate [Lexapro] 1 tab PO DAILY 10/13/15 02/09/23 Aspirin [Gurwinder Chewable] 81 mg PO DAILY 11/14/15 02/09/23 Albuterol Sulfate [Proair Hfa 1 puffs INH .FREQ 05/08/16 02/09/23 Inhaler] Multivitamin [Multivitamins] 1 tab PO DAILY 05/08/16 02/09/23 Lactobacillus Acidophilus 1 each PO DAILY 02/09/23 02/09/23 [Acidophilus Probiotic] atenoloL [Tenormin] 25 mg PO DAILY 02/09/23 02/09/23 - Allergies Allergies/Adverse Reactions: Allergies Allergy/AdvReac Type Severity Reaction Status Date / Time Sulfa (Sulfonamide Allergy Hives Verified 10/22/23 13:25 Antibiotics) - Social History Does the pt smoke?: No Smoking Status: Never smoker Does the pt drink ETOH?: Yes Does the pt have substance abuse?: No - Immunizations Immunizations are current?: Yes - POLST Patient has POLST: No PD ED PE NORMAL - Vitals Vital signs reviewed: Yes - General General: Alert and oriented X 3, No acute distress, Well developed/nourished - Abdomen Abdomen: Normal bowel sounds, Soft, Non tender, Non distended, No organomegaly Results - Vitals Vitals: Vital Signs - 24 hr 10/22/23 10/22/23 13:22 15:36 Temperature 36.3 C L Heart Rate 52 L 49 L Respiratory 16 16 Rate Blood Pressure 151/77 H 125/67 O2 Saturation 100 98 Oxygen O2 Source Room air - Labs Labs: Laboratory Tests 10/22/23 10/22/23 10/22/23 13:32 13:38 13:38 WBC 7.7 RBC 3.84 L Hgb 12.0 Hct 37.1 MCV 96.6 MCH 31.3 H MCHC 32.3 RDW 12.4 Plt Count 166 MPV 9.7 Neut # (Auto) 5.4 Lymph # (Auto) 1.5 [place] # (Auto) 0.5 Eos # (Auto) 0.2 Baso # (Auto) 0.1 Absolute Nucleated RBC 0.00 Nucleated RBC % 0.0 Sodium 136 Potassium 4.2 Chloride 105 Carbon Dioxide 27 Anion Gap 4.0 L BUN 25 H Creatinine 2.0 H Estimated GFR (MDRD) 27 L Glucose 80 Calcium 9.5 Total Bilirubin 0.2 AST 18 ALT 13 Alkaline Phosphatase 60 Total Protein 6.1 L Albumin 3.8 Globulin 2.3 Albumin/Globulin Ratio 1.7 Lipase 36 Urine Color YELLOW Urine Clarity CLEAR Urine pH 6.0 Ur Specific [place] 1.020 Urine Protein 100 H Urine Glucose (UA) NEGATIVE Urine Ketones NEGATIVE Urine Occult Blood NEGATIVE Urine Nitrite NEGATIVE Urine Bilirubin NEGATIVE Urine Urobilinogen 0.2 (NORMAL) Ur Leukocyte Esterase NEGATIVE Urine RBC None Seen Urine WBC 0-3 Ur Squamous Epith Cells RARE Squamous Urine Bacteria Few Ur Microscopic Review INDICATED Urine Culture Comments NOT INDICATED Urine HCG, Qual NEGATIVE PD Medical Decision Making - ED course ED course: 43-year-old female presents emergency department for concerns of dysuria and the ongoing UTI symptoms. Patient says that actually her dysuria has improved and since she is voided here in the emergency department she has not had any lingering burning. Urinalysis was complete she does not appear to have any nitrites or leukocytes no bacteria no WBCs I do not believe that patient is experiencing lingering effects of a urinary tract infection. Patient was told if her symptoms resume to follow-up with primary care provider if she started develop any fevers or chills or flank pain which she does not have at this point in time to come back into the emergency department for further evaluation. Her primary care reported that they Departure - Departure Disposition: 01 Home, Self Care Clinical Impression: Dysuria, PEDRO (acute kidney injury) Instructions: ED Dysuria Uncertain Cause Comments: Thank you for trusting us with your care. We have evaluated your urine here in the emergency department I am not seeing any acute abnormalities or findings at this point in time. He did have a mild acute kidney injury I have printed your labs for you to take to your primary care provider make sure that you are drinking plenty of fluids going home to help with this and have your labs reevaluated by her primary care provider. This is most likely because of the antibiotics you are on although unsure because I am not able to find what antibiotics you are taking. Please come back in if you are not having any improvement of your symptoms, fevers or chills, or any other concerning emergent symptoms. Discharge Date/Time: 10/22/23 15:57
== END 2023-10-22 15:57 | disposition home or self-care (01) ==
LOC: ED 12:50
DX: R30.0 Dysuria (principal); N17.9 Acute kidney failure, unspecified
CPT/HCPCS: 36415; 80053; 81001; 81003; 81025; 83690; 85025; 87086; 99283

== ENCOUNTER 2024-02-13 17:01 | Outpatient (CLI) | payer OTHER ==
--- NOTE | 2024-02-14 11:31 | XRAY Report ---
Cervical Spine 2-3V HISTORY: 43 years of age, CERVICAL DISC DEGENERATION, CERVICAL SPINE TECHNIQUE: Cervical Spine 2-3V COMPARISON: None. FINDINGS/IMPRESSION: Straightening of the cervical spine. Mild anterolisthesis of C4 on C5. Mild retrolisthesis of C5 on C 6. Mild anterolisthesis of C7 on T1 and T1 on T2. Vertebral body heights are well-maintained. Multile debbi, mild degenerative disc disease of the cervical spine, most pronounced at C5-6. No prevertebral s oft tissue edema. No significant cervical facet arthropathy. Lateral masses C1-2 are grossly well ali gned. Median sternotomy wires and pacer battery pack, partially visualized. Reviewed by: Demetria Villarreal MD on 02/14/2024 11:29 AM PDT Approved by: Demetria Villarreal MD on 02/14/2024 11:29 AM PDT Station ID: [id number]
== END 2024-02-13 17:02 | disposition home or self-care (01) ==
LOC: DI 17:01
PROVIDERS: ATTEND Internal Medicine
DX: M43.12 Spondylolisthesis, cervical region (principal); M50.322 Other cervical disc degeneration at C5-C6 level; Z95.0 Presence of cardiac pacemaker